=== PATIENT | female | born 1990 | race Caucasian/White ===

== ENCOUNTER 2022-03-25 23:04 | Inpatient (IN) ==
[2022-03-26] MEDS ORDERED: OXYTOCIN 30 UNITS/500 ML BAG IV PRN ×2 (00:01→03:00)
[2022-03-26] MEDS ORDERED: LIDOCAINE 1% LOCAL 20 ML VIAL INFIL PRN (00:01)
[2022-03-26] MEDS ORDERED: BUTORPHANOL TARTRATE 1 MG/ML VIAL IV PRN (00:13)
--- NOTE | 2022-03-26 00:13 | History & Physical Report ---
Date of Service March 26, 2022 Assessment & Plan (1) Uterine contractions at greater than 20 weeks of gestation: Plan: 31-year-old at 40 weeks and 6 days of gestation presenting today with contractions, spotting versus light bleeding, postdates. She was originally scheduled for induction of labor for tomorrow. Vital signs stable afebrile, heart rate reassuring, GBS negative, Latent versus early labor with regular contractions and light bleeding, Plan to admit, monitor, labs, reevaluate and augment with oxytocin as needed. All questions were answered. (2) Spotting affecting in third trimester: (3) Post-term , 40-42 weeks of gestation: History of Present Illness Primary Care Provider: NO PCP Patient is a 31-year-old -0-1-0 at 40 weeks and 6 days of gestation who has been feeling contractions since yesterday 2 a.m. They stopped for few hours and then they started again since 5:30 PM last night. They have been coming every 4-5 minutes and has been painful most of the time. Pain has been 7-8 out of 10. She has been also having brown-colored bloody discharge since yesterday morning. No active bleeding, has not been red either. Denies leakage of fluid. She reports good movements. Her has been uncomplicated. GBS negative. Allergies Allergy/AdvReac Type Severity Reaction Status Date / Time No Known Allergies Allergy Mild Verified 10/06/20 10:20 Home Medications Medication Instructions Recorded Confirmed Type prenat.vits,braulio,etg-[id number]-[id number] 1 tab PO DAILY 09/22/20 03/25/22 History Patient History Medical History ADHD Surgical History No history of previous surgery No pertinent past surgical history Family History Mother Hypertension Father Hypertension Grandmother (Maternal) Hypertension Aunt Breast cancer maternal Aunt No problems noted. Other Prostate cancer Denies family history of Ovarian cancer Colorectal cancer Social History (Updated 03/25/22 @ 23:22 by Katy Gale) Smoking Status: Never smoker Hx Alcohol Use: No Hx Substance Use: No Preferred Language: Slovak Communication Ability: Effective Visual Impairment: No Limitations Hearing Ability: Normal Mounter Automatic Required: No Beliefs That Will Affect Care: None marital status: marital status details: You (36) [phone] Current Living Situation: Spouse current occupational status: employed current occupation: HR@ [employer] Other Information That Helps Us Care for You: No Feels Safe at Home: Yes Safety Concerns: Feels Safe At This Time Dental Care, Regularly: Yes Physical Activity Frequency: Daily Seatbelt Use: always Sunscreen Use: No Do you think of yourself as: straight/heterosexual Gender Identity: Female Assistive Devices: None [employer] History No history of STDs, no history of chlamydia, gonorrhea, herpes Review of Systems as per Subjective / HPI Physical Exam Constitutional: well developed, well nourished and + acute distress (With contractions only) Gastrointestinal (Abdomen): normal bowel sounds, soft, nontender, no hepatosplenomegaly (Nontender between contractions) Genitourinary: normal external appearance OB Exam Abdomen: + vertex Manual OB Exam: + cervical dilation 1 cm, + cervical effacement 50% and + station -2 OB Exam Monitor Tracing: + external uterine monitor used and + category I Dark brown, bloody discharge exam glove about 5 ml Results & Data ([facility]) Vital Signs (Past 12 Hours) Vital Signs Temp Pulse Resp BP 03/25/22 23:18 67 129/84 03/25/22 23:23 36.6 C 20
[2022-03-26 00:34] LABS: Hematocrit (blood only) 33.4 % (34.1-44.9); Hemoglobin 11.7 g/dl (12.0-16.0); Mean Corpuscular Hemoglobin 29.5 pg (25.0-34.0); Mean Corpuscular Volume 84.3 fL (80.0-100.0); Mean Platelet Volume 9.3 fL (9.4-12.3); Platelet Count 266 K/uL (130-400); RDW Coefficient of Variation 11.9 % (11.5-14.5); RDW Standard Deviation 36.8 fL (36.4-46.3); Red Blood Count 3.96 M/uL (3.93-5.22); White Blood Count 9.21 K/ul (4.8-10.8)
[2022-03-26 00:59] LABS: Fibrinogen 550 mg/dl (184-400); INR 0.9 (0.9-1.1); Partial Thromboplastin Ratio 0.9; Partial Thromboplastin Time 24.9 Seconds (21.0-31.0); Prothrombin Time 9.8 Seconds (9.0-12.0)
[2022-03-26 01:01] LABS: Alanine Aminotransferase 6 U/L (7-52); Albumin Globulin Ratio 1.2 (0.9-2); Albumin Level 3.3 gm/dl (3.4-5.0); Alkaline Phosphatase 184 U/L (34-104); Anion Gap 7 (3-11); Aspartate Aminotransferase 11 U/L (13-39); BUN Creatinine Ratio 25.7 (10-20); Bilirubin,Total 0.2 mg/dl (0.2-1.0); Blood Urea Nitrogen 9 mg/dl (6-23); Calcium 8.8 mg/dl (8.5-10.1); Carbon Dioxide 20 mmol/L (21-32); Chloride 108 mmol/L (98-107); Creatinine Clr Calc Pharmacy 246.3 ml/min; Est GFR (African American) > 150.0 ml/min; Globulin 2.8 gm/dl (2.5-4.0); Glucose 97 mg/dl (70-99(Fasting)); Potassium 3.8 mmol/L (3.5-5.1); Sodium 135 mmol/L (136-145); Total Protein 6.1 gm/dl (6.0-8.3)
[2022-03-26] MEDS: LACTATED RINGER'S 1,000 ML IV PRN ×3 (01:19→19:05)
--- NOTE | 2022-03-26 01:29 | Obstetrical Progress Note ---
Date of Service March 26, 2022 Assessment & Plan Admission and Anticipated Discharge Date Admission Date: March 26, 2022 Subjective FHR categ I Labs WNL Lab Results 03/26/22 03/26/22 03/26/22 Range/Units 00:00 00:20 00:20 WBC 9.21 (4.8-10.8) K/ul RBC 3.96 (3.93-5.22) M/uL Hgb 11.7 L (12.0-16.0) g/dl Hct 33.4 L (34.1-44.9) % MCV 84.3 (80.0-100.0) fL MCH 29.5 (25.0-34.0) pg MCHC 35.0 (32.0-36.0) g/dL RDW Std Deviation 36.8 (36.4-46.3) fL RDW Coeff of Aishwarya 11.9 (11.5-14.5) % Plt Count 266 (130-400) K/uL MPV 9.3 L (9.4-12.3) fL PT 9.8 (9.0-12.0) Seconds INR 0.9 (0.9-1.1) APTT 24.9 (21.0-31.0) Seconds PTT Ratio 0.9 Fibrinogen 550 H (184-400) mg/dl Sodium (136-145) mmol/L Potassium (3.5-5.1) mmol/L Chloride (98-107) mmol/L Carbon Dioxide (21-32) mmol/L Anion Gap (3-11) BUN (6-23) mg/dl Creatinine (0.6-1.2) mg/dl Est Cr Clr Drug Dosing ml/min Est GFR ( Amer) ml/min Est GFR (Non-Af Amer) ml/min BUN/Creatinine Ratio (10-20) Glucose (70-99(Fasting)) mg/dl Calcium (8.5-10.1) mg/dl Total Bilirubin (0.2-1.0) mg/dl AST (13-39) U/L ALT (7-52) U/L Alkaline Phosphatase (34-104) U/L Total Protein (6.0-8.3) gm/dl Albumin (3.4-5.0) gm/dl Globulin (2.5-4.0) gm/dl Albumin/Globulin Ratio (0.9-2) SARS-CoV-2, RNA, NAAT NEGATIVE (NEGATIVE) 03/26/22 Range/Units 00:20 WBC (4.8-10.8) K/ul RBC (3.93-5.22) M/uL Hgb (12.0-16.0) g/dl Hct (34.1-44.9) % MCV (80.0-100.0) fL MCH (25.0-34.0) pg MCHC (32.0-36.0) g/dL RDW Std Deviation (36.4-46.3) fL RDW Coeff of Aishwarya (11.5-14.5) % Plt Count (130-400) K/uL MPV (9.4-12.3) fL PT (9.0-12.0) Seconds INR (0.9-1.1) APTT (21.0-31.0) Seconds PTT Ratio Fibrinogen (184-400) mg/dl Sodium 135 L (136-145) mmol/L Potassium 3.8 (3.5-5.1) mmol/L Chloride 108 H (98-107) mmol/L Carbon Dioxide 20 L (21-32) mmol/L Anion Gap 7 (3-11) BUN 9 (6-23) mg/dl Creatinine 0.35 L (0.6-1.2) mg/dl Est Cr Clr Drug Dosing 246.3 ml/min Est GFR ( Amer) > 150.0 ml/min Est GFR (Non-Af Amer) 144.0 ml/min BUN/Creatinine Ratio 25.7 H (10-20) Glucose 97 (70-99(Fasting)) mg/dl Calcium 8.8 (8.5-10.1) mg/dl Total Bilirubin 0.2 (0.2-1.0) mg/dl AST 11 L (13-39) U/L ALT 6 L (7-52) U/L Alkaline Phosphatase 184 H (34-104) U/L Total Protein 6.1 (6.0-8.3) gm/dl Albumin 3.3 L (3.4-5.0) gm/dl Globulin 2.8 (2.5-4.0) gm/dl Albumin/Globulin Ratio 1.2 (0.9-2) SARS-CoV-2, RNA, NAAT (NEGATIVE) Continue to monitor closely Augment with Oxytocin Results & Data ([facility]) Vital Signs (Past 12 Hours) Vital Signs Temp Pulse Resp BP 03/25/22 23:18 67 129/84 03/25/22 23:23 36.6 C 20
--- NOTE | 2022-03-26 06:59 | Obstetrical Progress Note ---
Date of Service March 26, 2022 Assessment & Plan Admission and Anticipated Discharge Date Admission Date: March 26, 2022 Subjective Patient is reevaluated. She refused Pitocin earlier due to fear of pain. She did not take Stadol either. She could not sleep due to contractions. VSS Afebrile FHR categ I Minimal brown d/c with wiping only, nothing on pad VE; 1-2 cm/ 60%/ -2, softer Patient desires to eat and take Stadol for pain and Pitocin Plans for epidural later Continue to monitor closely. Results & Data ([facility]) Vital Signs (Past 12 Hours) Vital Signs Temp Pulse Resp BP 03/26/22 03:03 36.7 C 85 20 139/85 03/25/22 23:18 67 129/84 03/25/22 23:23 36.6 C 20
[2022-03-26] MEDS ORDERED: miSOPROStoL 50 MCG TAB ONE (10:58)
--- NOTE | 2022-03-26 11:10 | Labor Progress Brief Note ---
Date of Service March 26, 2022 Assessment & Plan Admission and Anticipated Discharge Date Admission Date: March 26, 2022 Physical Exam Genitourinary: OB Exam Monitor Tracing: + external FHT monitor used, + external uterine monitor used, + category I and + normal FHT variability I discussed with patient and spouse the options for starting her labor including doing nothing, starting Oxytocin and using Cytotec to further ripen cervix. After she discussed her options with her spouse she opted to go with Cytotec to ripen cervix. Will monitor and allow to ambulate until contractions regular. Results & Data ([facility]) Vital Signs (Past 12 Hours) Vital Signs Temp Pulse Resp BP 03/26/22 08:23 36.5 C 84 20 127/78 03/26/22 03:03 36.7 C 85 20 139/85 03/25/22 23:18 67 129/84 03/25/22 23:23 36.6 C 20
[2022-03-26] MEDS: miSOPROStoL 50 MCG TAB PO SCH ×2 (11:59→15:24)
[2022-03-26] MEDS ORDERED: miSOPROStoL 50 MCG TAB PO SCH (12:00)
[2022-03-26] MEDS ORDERED: Nursing to Pharmacy Communication SCH (16:00)
[2022-03-26] MEDS ORDERED: ePHEDrine sulfate 50 MG/ML AMP ONE (16:58)
[2022-03-26] MEDS ORDERED: BUPIVACAINE 0.25% 30 ML VIAL ONE ×2 (16:58→22:05)
[2022-03-26] MEDS ORDERED: SODIUM CHLORIDE 0.9% INJ 10 ML VIAL ONE ×2 (16:58→22:06)
[2022-03-26] MEDS ORDERED: LIDOCAINE 2%/EPINEPHRINE 1:200,000 20 ML SDV ONE (16:58)
[2022-03-26] MEDS ORDERED: fentaNYL citrate 100 MCG/2 ML VIAL ONE (16:58)
[2022-03-26] MEDS ORDERED: fentaNYL 2MCG/ML ROPIVACAINE 1.25MG/ML 100 ML BAG EPI ONE (16:59)
[2022-03-26] MEDS ORDERED: diphenhydrAMINE 50 MG/ML VIAL IV PRN (17:02)
[2022-03-26] MEDS ORDERED: NALBUPHINE HCL INJ 10 MG/ML AMP IV PRN (17:02)
[2022-03-26] MEDS ORDERED: ePHEDrine sulfate 50 MG/ML AMP IV PRN (17:02)
[2022-03-26] MEDS ORDERED: NALOXONE HCL 0.4 MG/1 ML VIAL/CARP IV PRN (17:02)
[2022-03-26] MEDS ORDERED: NALOXONE HCL 1 MG in SODIUM CHLORIDE 0.9% 1000ML 1,000 ML IV PRN (17:02)
[2022-03-26] MEDS ORDERED: ONDANSETRON INJ 2 MG/ML 2 ML VIAL IV PRN (17:02)
--- NOTE | 2022-03-26 17:14 | Anesthesiology Consultation ---
Date of Service March 26, 2022 Assessment & Plan Chart Review Chart Review: Acceptable Risk for Surgery and Patient NOT seen in Pre Admission Testing Consults Requested none ASA ASA2 Proposed Anesthesia Anesthesia Type: Labor Epidural and CSE Risk / Benefits Reviewed With: PT / POA / Parent / Guardian, Accepts Plan and Informed Consent Obtained History Height/Weight Height: 5 ft 7 in Weight: 76.657 kg Allergies Allergy/AdvReac Type Severity Reaction Status Date / Time No Known Allergies Allergy Mild Verified 10/06/20 10:20 Medications Home Medications Medication Instructions Recorded Confirmed Last Taken prenat.vits,braulio,[id number]-[id number]-fnygc 1 tab PO DAILY 09/22/20 03/25/22 03/24/22 09:00 Active Medications Generic Name Dose Route Start Last Admin Trade Name Freq PRN Reason Stop Dose Admin Lactated Ringer's 1,000 mls @ 150 mls/hr 03/26/22 00:01 03/26/22 15:20 Lr IV 03/28/22 00:00 125 mls/hr .[id number] PRN Administration L&D Protocol Protocol Oxytocin 30 units in 500 mls @ 6 mls/hr 03/26/22 03:00 03/26/22 16:36 Pitocin IV 03/28/22 02:59 0.36 units/hr .Q24H PRN 6 mls/hr Labor Induction/Augmentation Titration Protocol 0.36 UNITS/HR NPO Date Last Intake of Fluids: 03/26/22 Time Last Intake of Fluids: 16:00 Date Last Intake of Solids: 03/26/22 Time Last Intake of Solids: 12:00 Past Medical History Medical History ADHD Exercise / Class Metabolic Activity II 4-5 Yardwork/Stairs/Walk up hill Past Family History Family History Mother Hypertension Father Hypertension Grandmother (Maternal) Hypertension Aunt Breast cancer maternal Aunt No problems noted. Other Prostate cancer Denies family history of Ovarian cancer Colorectal cancer Past Surgical History Surgical History No history of previous surgery No pertinent past surgical history Past Anesthesia History No Hx of Anesthesia Complications and No Family Hx of Anesthesia Complications History of PONV No Hx of PONV and No Hx of Motion Sickness Social History Smoking Status: Never smoker Hx Alcohol Use: No Hx Substance Use: No Review of Systems no chest pain or sob Physical Exam Vital Signs Last Vital Signs Temp 37.1 C 03/26/22 14:32 Pulse 93 H 03/26/22 15:21 Resp 20 03/26/22 14:32 BP 131/84 03/26/22 15:21 SpO2 98 ENMT Mouth: no TMJ abnormality Thyromental Distance: > or= 3.5 Finger Breadths Mallampati Class: II Neck normal visual inspection Respiratory normal respiratory effort Auscultation: lungs clear to auscultation bilaterally Cardiovascular Rate/Rhythm: regular rate and regular rhythm Musculoskeletal Spine: normal cervical ROM Neurologic moves all extremities Psychiatric Orientation: alert and oriented x 3 Testing Laboratory Results 03/26/22 00:20 03/26/22 00:20 PT 9.8 Seconds (9.0-12.0) 03/26/22 00:20 INR 0.9 (0.9-1.1) 03/26/22 00:20 APTT 24.9 Seconds (21.0-31.0) 03/26/22 00:20
[2022-03-26] MEDS: fentaNYL 2MCG/ML ROPIVACAINE 1.25MG/ML 100 ML BAG EPI PRN ×2 (17:26→23:41)
--- NOTE | 2022-03-26 19:32 | Labor Progress Brief Note ---
Date of Service March 26, 2022 Assessment & Plan Admission and Anticipated Discharge Date Admission Date: March 26, 2022 Physical Exam Genitourinary: Manual OB Exam: + cervical dilation 4 cm, + cervical effacement 100%, + station (AROM with Amni-hook clear fluid) -1 and + amniotic fluid clear Results & Data ([facility]) Vital Signs (Past 12 Hours) Vital Signs Temp Pulse Resp BP Pulse Ox 03/26/22 19:07 37.1 C 18 03/26/22 13:04 37 C 18 03/26/22 19:27 89 97 03/26/22 19:26 88 138/93 03/26/22 19:22 82 97 03/26/22 19:17 82 97 03/26/22 19:12 83 97 03/26/22 19:11 88 128/60 03/26/22 19:07 90 97 03/26/22 19:02 88 97 03/26/22 18:57 86 97 03/26/22 18:56 86 120/59 L 03/26/22 18:52 87 97 03/26/22 18:47 84 98 03/26/22 18:42 81 97 03/26/22 18:43 79 92 03/26/22 18:41 83 117/60 03/26/22 18:37 80 96 03/26/22 18:32 88 97 03/26/22 18:31 91 H 93 03/26/22 18:27 79 96 03/26/22 18:26 77 113/57 L 03/26/22 18:22 79 96 03/26/22 18:17 86 97 03/26/22 18:12 80 97 03/26/22 18:11 82 116/63 03/26/22 18:07 81 95 03/26/22 18:02 81 94 03/26/22 17:57 93 H 96 03/26/22 17:54 82 120/59 L 03/26/22 17:52 90 97 03/26/22 17:50 83 119/63 03/26/22 17:47 81 97 03/26/22 17:45 82 117/67 03/26/22 17:42 81 97 03/26/22 17:40 97 H 130/66 03/26/22 17:37 87 97 03/26/22 17:34 93 H 131/65 03/26/22 17:32 98 03/26/22 17:32 84 03/26/22 17:32 84 124/71 03/26/22 17:30 86 128/94 03/26/22 17:27 85 98 03/26/22 17:28 85 138/85 03/26/22 17:22 92 H 99 03/26/22 17:17 92 H 99 03/26/22 17:12 90 98 03/26/22 15:21 93 H 131/84 03/26/22 14:32 37.1 C 85 20 131/82 03/26/22 12:57 94 H 130/78 03/26/22 08:23 36.5 C 84 20 127/78
[2022-03-26] MEDS ORDERED: NURSING L&D Epidural Breakthrough Pain Update ONE (21:12)
[2022-03-27] MEDS ORDERED: BENZOCAINE 20% AER SPR 82.5 GM CAN EXT PRN (00:32)
[2022-03-27] MEDS ORDERED: OXYTOCIN 30 UNITS/500 ML BAG IV PRN (00:32)
[2022-03-27] MEDS ORDERED: DIPHTHERIA/TETANUS/PERTUSSIS 0.5 ML SYR/VIAL IM ONE (00:32)
[2022-03-27] MEDS ORDERED: HYDROCORTISONE ACETATE 25 MG SUPP PR PRN (00:32)
--- NOTE | 2022-03-27 00:43 | Delivery Summary ---
Vaginal Delivery Summary Date of Service March 27, 2022 Vaginal Delivery Summary Delivery Note live female ALFONZO over intact perineum with delayed cord clamping and Apgars 9/9 weight pending. Cord blood obtained followed by spontaneous delivery of intact placenta. First degree tear repaired with 3/0 Vicryl suture. Red rubber catheter used to empty the bladder of 250 ml. clear urine. EBL 300 ml. Final sponge and needle counts are correct. Mom and baby stable.
--- NOTE | 2022-03-27 02:40 | Anesthesia Procedure Note ---
Date of Service March 27, 2022 Anesthesia Post Epidural Note Vital Signs Vital Signs: Temp Pulse Resp BP Pulse Ox 37.4 C 94 H 18 124/69 97 03/27/22 01:00 03/27/22 02:33 03/27/22 02:00 03/27/22 02:33 03/27/22 00:27 Pain Intensity Back: Pain Intensity: 2 Notes Mental Status: alert / awake / arousable and participated in evaluation Nausea / Vomiting: adequately controlled Pain: adequately controlled Airway Patency, RR, SpO2: stable & adequate BP & HR: stable & adequate Hydration State: stable & adequate Neuraxial Anesthesia: was administered and sensory block is resolving Anesthetic Complications: no major complications apparent and Pt Satisfied with anesthetic care Epidural: Removed without complications and With tip intact
[2022-03-27] MEDS: IBUPROFEN 600 MG TAB PO PRN ×5 (03:17→23:10)
[2022-03-27] MEDS: ACETAMINOPHEN 325 MG TAB PO PRN ×2 (03:18→21:00)
[2022-03-27] MEDS: PRENATAL VITAMIN 1 TAB PO SCH (08:21)
[2022-03-27] MEDS: DOCUSATE SODIUM 100 MG CAP PO SCH ×2 (08:21→21:00)
[2022-03-27] MEDS ORDERED: NON-FORMULARY MEDICATION (Prenat.Vits,Cal,Min-Iron-Folic tablet) PO SCH (09:00)
[2022-03-28] MEDS: DOCUSATE SODIUM 100 MG CAP PO SCH (08:26)
[2022-03-28] MEDS: IBUPROFEN 600 MG TAB PO PRN (08:26)
[2022-03-28] MEDS: PRENATAL VITAMIN 1 TAB PO SCH (08:26)
--- NOTE | 2022-03-28 11:19 | Obstetrical Progress Note ---
Date of Service March 28, 2022 Subjective Ambulation: ambulating normally Voiding: no voiding problems Passing Gas:: Yes Diet Tolerance:: regular diet Feeding Type:: breast feeding Current Pain Level(1-10): 0 doing well. would like to go home today Physical Exam Constitutional WD/WN, vitals as above Gastrointestinal (Abdomen) Abdomen soft and non-tender. fundus firm below U Musculoskeletal Extremities: extremities normal to inspection Skin no rashes, warm and dry Neurologic patellar DTR's 2+ bilat, sensation intact Psychiatric A+Ox3, euthymic affect Results & Data ([facility]) Vital Signs (Past 12 Hours) Vital Signs Temp Pulse Resp BP Pulse Ox O2 Del Method 03/28/22 07:26 36.4 C L 84 18 112/75 99 Room Air Laboratory Results Laboratory Results - last 72 hr 03/26/22 03/26/22 03/26/22 00:00 00:20 00:20 WBC 9.21 RBC 3.96 Hgb 11.7 L Hct 33.4 L MCV 84.3 MCH 29.5 MCHC 35.0 RDW Std Deviation 36.8 RDW Coeff of Aishwarya 11.9 Plt Count 266 MPV 9.3 L PT 9.8 INR 0.9 APTT 24.9 PTT Ratio 0.9 Fibrinogen 550 H Sodium Potassium Chloride Carbon Dioxide Anion Gap BUN Creatinine Est Cr Clr Drug Dosing Est GFR ( Amer) Est GFR (Non-Af Amer) BUN/Creatinine Ratio Glucose Calcium Total Bilirubin AST ALT Alkaline Phosphatase Total Protein Albumin Globulin Albumin/Globulin Ratio SARS-CoV-2, RNA, NAAT NEGATIVE 03/26/22 00:20 WBC RBC Hgb Hct MCV MCH MCHC RDW Std Deviation RDW Coeff of Aishwarya Plt Count MPV PT INR APTT PTT Ratio Fibrinogen Sodium 135 L Potassium 3.8 Chloride 108 H Carbon Dioxide 20 L Anion Gap 7 BUN 9 Creatinine 0.35 L Est Cr Clr Drug Dosing 246.3 Est GFR ( Amer) > 150.0 Est GFR (Non-Af Amer) 144.0 BUN/Creatinine Ratio 25.7 H Glucose 97 Calcium 8.8 Total Bilirubin 0.2 AST 11 L ALT 6 L Alkaline Phosphatase 184 H Total Protein 6.1 Albumin 3.3 L Globulin 2.8 Albumin/Globulin Ratio 1.2 SARS-CoV-2, RNA, NAAT
[2022-03-28] MEDS ORDERED: bisacodyL 5 MG TABEC PO SCH (20:00)
[2022-03-29] MEDS ORDERED: bisacodyL 10 MG SUPP PR PRN (00:32)
== END 2022-03-28 12:45 | disposition home or self-care (01) | DRG 807 ==
LOC: OPB 23:04 → 4S1 23:12 → 4E2 03-27 02:46